=== PATIENT | female | born 1940 ===

== ENCOUNTER 2017-07-02 17:20 | Emergency (ER) | payer OTHER ==
[2017-07-02 17:33] VITALS: BMI 34.9
[2017-07-02 19:01] LABS: BASO % 0.3 % (0.0-2.0); EOS # 0.1 K/uL (0.0-0.7); EOS % 1.9 % (0.0-4.0); HEMOGLOBIN 13.6 g/dL (11.0-16.0); LYMPH # 2.3 K/uL (1.0-4.3); LYMPH % 33.1 % (20.0-40.0); MEAN CELL VOLUME 80.9 fL (81.0-99.0); MEAN CORPUSCULAR HEMOGLOBIN 26.7 pg (27.0-31.0); MEAN PLATELET VOLUME 10.5 fL (7.2-11.7); MONO # 0.6 K/uL (0.0-0.8); MONO % 9.1 % (0.0-10.0); NEUT # 3.9 K/uL (1.8-7.0); NEUT % 55.6 % (50.0-75.0); RBC 5.09 Mil/uL (3.80-5.20); RED CELL DISTRIBUTION WIDTH 14.7 % (11.5-14.5)
[2017-07-02 19:16] LABS: ALB/GLOB RATIO 1.2 (1.0-2.1); ALBUMIN 3.9 g/dL (3.5-5.0); CALCIUM 8.8 mg/dl (8.6-10.4)
[2017-07-02] MEDS ORDERED: Tmp-Smz 800 mg-160 mg DS Tab PO STA (19:49)
[2017-07-02] MEDS ORDERED: Tmp-Smz 800 mg-160 mg DS Tab ONE (20:00)
[2017-07-02 20:06] VITALS: BP 167/79; PULSE 73; RESP 18; TEMP 98.7
--- NOTE | 2017-07-02 20:06 | C.PDOC ---
History Of Present Illness 76 yr old female presents to the ER with complaints of ulcer to the left lower extremity. Patient states it "opened" yesterday with clear drainage and tender to touch. Denies fever, chills, chest pain, SOB, weakness or numbness. Time Seen by Provider: 07/02/17 18:12 Chief Complaint (Nursing): Abnormal Skin Integrity History Per: Patient History/Exam Limitations: no limitations Onset/Duration Of Symptoms: Days Past Medical History Reviewed: Historical Data, Nursing Documentation, Vital Signs Vital Signs: Last Vital Signs Temp 98.7 F 07/02/17 19:41 Pulse 73 07/02/17 19:41 Resp 18 07/02/17 19:41 BP 167/79 H 07/02/17 19:41 Pulse Ox 100 07/02/17 20:10 - Medical History PMH: Anxiety, Asthma, Bronchitis, Dementia, Depression, HTN, Hypercholesterolemia, Osteoporosis - [facility] Procedures CLOSED ENDOSCOPIC BIOPSY OF LARGE INTESTINE (10/15/13) Family History: States: No Known Family Hx - Social History Hx Alcohol Use: No Hx Substance Use: No Review Of Systems Except As Marked, All Systems Reviewed And Found Negative. Constitutional: Negative for: Fever, Chills Cardiovascular: Negative for: Chest Pain Respiratory: Negative for: Shortness of Breath Skin: Positive for: Other (+ ulcer to the left lower extremity) Neurological: Negative for: Weakness, Numbness Physical Exam - Physical Exam Appears: Non-toxic, No Acute Distress Skin: Warm, Dry, No Rash Head: Atraumatic, Normacephalic Cardiovascular: Rhythm Regular, No Murmur Respiratory: Normal Breath Sounds, No Rales, No Rhonchi, No Wheezing Extremity: Capillary Refill (<2 secs), Other (Lower Extremity - Chronic skin changes secondary to venous stasis. Medial aspect of left ankle has 2 small skin breaks. No active bleeding or draining. Tender to touch.) Pulses: Left Dorsalis Pedis: Normal, Right Dorsalis Pedis: Normal Neurological/Psych: Oriented x3, Normal Speech ED Course And Treatment - Laboratory Results Result Diagrams: 07/02/17 18:54 07/02/17 18:54 O2 Sat by Pulse Oximetry: 100 (RA) Pulse Ox Interpretation: Normal Medical Decision Making Medical Decision Making: PLAN: * Labs * Bactrim PO * Toradol IVP Disposition - Disposition Referrals: Luigi Villanueva MD [Staff Provider] - Disposition: HOME/ ROUTINE Disposition Time: 19:20 Condition: GOOD Additional Instructions: Thank you for letting us take care of you today. The emergency medical care you received today was directed at your acute symptoms. If you were prescribed any medication, please fill it and take as directed. It may take several days for your symptoms to resolve. Return to the Emergency Department if your symptoms worsen, do not improve, or if you have any other problems. Please contact your doctor or call one of the physicians/clinics you have been referred to that are listed on the Patient Visit Information form that is included in your discharge packet. Bring any paperwork you were given at discharge with you along with any medications you are taking to your follow up visit. Our treatment cannot replace ongoing medical care by a primary care provider (PCP) outside of the emergency department. Thank you for allowing the [facility] team to be part of your care today. Follow up with Dr. Villanueva in 1-2 days for re-evaluation and further management. Marya por dejarnos atenderlo bartolomey. La atencin mdica de emergencia que recibi hoy estaba dirigida a hoda sntomas agudos. Si le prescribieron algn medicamento, llnelo y tome segn las indicaciones. Hoda sntomas pueden tardar varios sharma en resolverse. Regrese al Departamento de Emergencia si hoda s ntomas empeoran, no mejoran o si tiene algn otro problema. Comunquese con jerez mdico o llame a jose de los mdicos / clnicas a los que rob sido referido que figura en el formulario de Informacin de visita del paciente que se incluye en jerez paquete de clem. Traiga todos los documentos que recibi al momento del clem junto con los medicamentos que est tomando en jerez visita de seguimiento. Nuestro tratamiento no puede reemplazar la atencin mdica en curso por parte de un proveedor de atencin primaria (PCP) fuera del departamento de emergencias. Marya por permitir que el equipo de [facility] sea parte de jerez cuidado hoy. Con un seguimiento con el Dr. Vlilanueva en 1-2 sharma para la reevaluacin y la administracin adicional. Prescriptions: Cephalexin [cephalexin] 500 mg PO QID #28 cap Ibuprofen [Motrin] 600 mg PO Q6 PRN #20 tab PRN Reason: Pain, Moderate (4-7) Sulfamethoxazole/Trimethoprim [Bactrim DS 800 mg-160 mg] 1 tab PO BID #14 tab Instructions: Cellulitis (Skin Infection), Adult (DC) Forms: Gen Discharge Inst Setswana Print Language: OCCITAN - Clinical Impression Clinical Impression: Abscess - Scribe Statement The provider has reviewed the documentation as recorded by the Scribe Ree Villar Provider Attestation: All medical record entries made by the Scribe were at my direction and personally dictated by me. I have reviewed the chart and agree that the record accurately reflects my personal performance of the history, physical exam, medical decision making, and the department course for this patient. I have also personally directed, reviewed, and agree with the discharge instructions and disposition.
[2017-07-02 20:07] VITALS: O2SAT 100
== END 2017-07-02 20:06 | disposition home or self-care (01) ==
LOC: C.ER 17:20
DX: L02.416 Cutaneous abscess of left lower limb (principal)
CPT/HCPCS: 80053; 85025; 87040; 96374; 99285; J1885